=== PATIENT | female | born 1980 | race Caucasian/White ===

== ENCOUNTER 2016-12-20 10:40 | Emergency (ER) | payer OTHER ==
--- NOTE | 2016-12-20 10:44 | UCPHY ---
H & P Patient Type: New HPI/ROS: HPI CHIEF COMPLAINT: Left wrist pain status post skiing accident HISTORY OF PRESENT ILLNESS: this patient very pleasant 36-year-old female denies having any significant medical or surgical history she presents to the urgent care by private vehicle with approximately 6 days of left wrist pain. She tells me that she was skiing and fell on her outstretched left hand. She has had daily pain to the medial aspect of her left wrist specifically over the distal radius however no snuffbox tenderness. She has full range of motion over as pain with hyperextension of the wrist, she is neurovascular intact good pulse, good cap refill, good sensation, and no numbness or tingling no weakness. Denies any other areas of injury. Past Medical History: No significant medical history Past Surgical History: no significant surgical history Social History: denies daily use of drugs alcohol tobacco products Family History: noncontributory ROS REVIEW OF SYSTEMS: A comprehensive 10 point review of systems is otherwise negative aside from elements mentioned in the history of present illness. Exam Constitutional triage nursing summary reviewed, vital signs reviewed, awake/ alert. Eyes normal conjunctivae and sclera, EOMI, PERRLA. HENT normal inspection, atraumatic, moist mucus membranes, no epistaxis, neck supple/ no meningismus, no raccoon eyes. Respiratory clear to auscultation bilaterally, normal breath sounds, no respiratory distress, no wheezing. Cardiovascular rate normal, regular rhythm, no murmur, no edema, distal pulses normal. Gastrointestinal soft, non-tender, no rebound, no guarding, normal bowel sounds, no distension, no pulsatile mass. Genitourinary no CVA tenderness. Musculoskeletal left wrist: neurovascular intact, full range of motion, tender palpation over the distal radius, good radial pulse, good cap refill, good sensation, good oracle developer strength, no snuffbox tenderness. no midline vertebral tenderness, full range of motion, no calf swelling, no tenderness of extremities, no meningismus, good pulses, neurovascularly intact. Skin pink, warm, & dry, no rash, skin atraumatic. Neurologic awake, alert and oriented x 3, AAOx3, moves all 4 extremities equally, motor intact, sensory intact, CN II-XII intact, normal cerebellar, normal vision, normal speech. Psychiatric normal mood/affect. Heme/Lymph/Immune no lymphadenopathy. Differential Diagnosis: Includes but is not limited to in a particular order, acute left wrist sprain, wrist fracture, distal radius fracture, hyper extension injury Medical Decision Making: patient had an x-ray of the left wrist to rule out bony abnormality most likely patient be placed in a Velcro wrist splint and will need to follow up with Orthopedics. Re-evaluation: ED x-ray left wrist: For view wrist x-ray image interpreted myself. No visible fracture. 1112: This patient be placed in a Velcro wrist splint orthopedic referral be given to the patient I do recommend she take ibuprofen for pain control. Return to the urgent care or emergency room if there is any worsening symptoms questions or concerns she should follow up with Orthopedics. Next week Source: Patient Constitutional: Initial Vital Signs Temperature (C) 36.6 C 12/20/16 10:55 Heart Rate 78 12/20/16 10:55 Respiratory Rate 18 12/20/16 10:55 Blood Pressure 112/62 12/20/16 10:55 O2 Sat (%) 96 12/20/16 10:55 O2 Delivery Mode Room Air Allergies/Adverse Reactions: Penicillins Allergy (Verified 12/20/16 10:55) Home Medications: Medication Instructions Recorded Ibuprofen [Motrin (*)] 800 mg PO Q6-8PRN #7 tab 12/20/16 Departure - Departure Disposition: Home, Routine, Self-Care Clinical Impression: Left wrist sprain Qualifiers: Encounter type: initial encounter Qualified Code(s): S63.502A - Unspecified sprain of left wrist, initial encounter Condition: Good Instructions: Wrist Injury (ED), Wrist Sprain (ED) Additional Instructions: 1. stay in her wrist splint for comfort. 2. Return to the emergency room if there is any worsening symptoms questions or concerns. 3. Please follow up with Orthopedics next week please call to make an appointment. Referrals: NONE *PRIMARY CARE P,. [Primary Care Provider] - As per Instructions Issa Parsons MD [Medical Doctor] - As per Instructions Prescriptions: Ibuprofen [Motrin (*)] 800 mg PO Q6-8PRN #7 tab - PQRS PQRS Measurement: n/a
[2016-12-20 10:59] VITALS: BP 112/62; PULSE 78; RESP 18; TEMP 98; O2SAT 96
== END 2016-12-20 11:38 | disposition home or self-care (01) ==
LOC: CED 10:40
DX: S63.502A Unspecified sprain of left wrist, initial encounter (principal); Y93.23 Activity, snow (alpine) (downhill) skiing, snowboarding, sledding, tobogganing and snow tubing; V00.321A Fall from snow-skis, initial encounter
CPT/HCPCS: 73110-PO; G0463-PO; L3908